=== PATIENT | female | born 1990 | race Caucasian/White ===

== ENCOUNTER → 2017-05-30 | Outpatient (REF) | payer OTHER ==
[2017-05-30 14:01] LABS: PLATELET COUNT, AUTOMATED 297 K/uL (150-450)
== END ==
LOC: ZZSENDIN 12:53
PROVIDERS: ATTEND Student in an Organized Health Care Education/Training Program
DX: Z36.89 Encounter for other specified antenatal screening (principal); Z3A.01 Less than 8 weeks gestation of pregnancy
CPT/HCPCS: 81001; 85025; 86592; 86762; 86850; 86900; 86901; 87088; 87340

== ENCOUNTER 2017-10-27 13:12 | Inpatient (IN) | payer BC ==
[~2017-10-27] VITALS: Ht 163.8 cm; Wt 109.3 kg
[2017-10-27] MEDS ORDERED: MAGNESIUM SUL* 4 GM/100 ML BAG 100 ML IVPB ONE (13:40)
[2017-10-27] MEDS ORDERED: METOCLOPRAMIDE 10 MG/2 ML SDV IVP PRN (13:40)
[2017-10-27] MEDS ORDERED: CALCIUM GLUC 10% 100 MG/ML VL IVP ONE (13:40)
[2017-10-27] MEDS: LR(*) 1000 ML BAG 1,000 ML IV SCH ×2 (13:40→23:40)
[2017-10-27] MEDS ORDERED: FAMOTIDINE(*) 20MG/50ML PREMIX 50 ML IVPB PRN (13:40)
[2017-10-27] MEDS ORDERED: OXYTOCIN 30 UNIT/D5LR 500 ML 500 ML IV PRN (13:40)
[2017-10-27] MEDS ORDERED: LIDOCAINE/SOD BICARB 8.4% SYR SC PRN (13:40)
[2017-10-27] MEDS ORDERED: LIDOCAINE 1% LOCAL 300 MG/30ML INJ PRN (13:40)
[2017-10-27 14:08] LABS: PLATELET COUNT, AUTOMATED 83 K/uL (150-450)
[2017-10-27] MEDS ORDERED: LABETALOL HCL 100 MG/20ML VIAL ONE ×2 (14:08→22:38)
[2017-10-27] MEDS: hydrALAZINE HCL 20 MG/ML VIAL IVP PRN ×2 (14:11→14:22)
[2017-10-27] MEDS: DLR(*) 1000 ML BAG 1,000 ML IV SCH ×2 (14:25→23:40)
[2017-10-27] MEDS: MAGNESIUM SULF 20 GM/500 ML IV 500 ML IV SCH (14:57)
[2017-10-27] MEDS: LABETALOL HCL 100 MG/20ML VIAL IVP PRN ×6 (15:00→22:26)
[2017-10-27 16:00] VITALS: BP 161/91; Ht 163.8 cm; Wt 109.3 kg
[2017-10-27] MEDS ORDERED: PREN-148 PO (16:07)
[2017-10-27] MEDS: MISOPROSTOL 25 MCG CAP PV SCH ×3 (16:09→21:00)
--- NOTE | 2017-10-27 16:11 | RADIOLOGY IMAGING REPORT ---
FACILITY: [facility] PATIENT NAME: Kassie Wood : 1990 MR: [id number] V: [id number] EXAM DATE: ORDERING PHYSICIAN: SEEMA BENJAMIN TECHNOLOGIST: Location: [facility] - [place] Patient: Kassie Wood : 1990 Visit/Account:[id number] Date of Sevice: 10/27/2017 EXAMINATION: Transabdominal OB Ultrasound HISTORY: demise. Gestational age: 29 weeks and 0 days based on an MAGNO of 01/12/2018. LMP(c): 04/07/2017. COMPARISON: None. FINDINGS: Intrauterine gestations: one presentation: Vertex heart rate: Absent cardiac activity Amniotic fluid index: 11.4 cm Largest amniotic fluid pocket 3.3 cm Placenta position: Posterior, without evidence of previa Uterus: gravid, otherwise normal Cervix: Poorly visualized on this transabdominal exam Gestational Parameters: BPD: 6.28 cm, 25 weeks 4 days HC: 23.17 cm, 25 weeks 2 days AC: 19.10 cm, 23 weeks 6 days FL: 4.86 cm, 26 weeks 3 days Average ultrasound age (AUA): 25 weeks 2 days Estimated weight (EFW): 756 grams +/- 110 grams EFW for LMP: 2nd percentile Anatomic Survey: A full anatomic survey was not performed. There is partial overlap of the skull bones compatible with a "[place] sign." Mild ascites with small pleural effusions. IMPRESSION: 1. demise. No cardiac activity is present. 2. Vertex position. 3. Posterior placenta without evidence of previa. 4. Estimated weight 756 grams, 2nd percentile for gestational age. 5. ANABELLE 11.4 cm. Findings were discussed with SEEMA BENJAMIN at 10/27/2017 4:07 PM. Report Dictated By: Alexandru Melendez MD at 10/27/2017 3:50 PM Report E-Signed By: Alexandru Melendez MD at 10/27/2017 4:07 PM [id number]
[2017-10-27] MEDS ORDERED: DEXAMETHASONE SOD 4 MG/ML VIAL IVP ONE (16:55)
[2017-10-27] MEDS: FLUSH 10 ML SYR IVP SCH (17:00)
[2017-10-27] MEDS ORDERED: hydrALAZINE HCL 20 MG/ML VIAL IVP PRN (17:55)
[2017-10-27] MEDS ORDERED: CALCIUM GLUC 10% 100 MG/ML VL IVP PRN (18:15)
--- NOTE | 2017-10-27 18:27 | History & Physical ---
History of Present Illness Age of Patient: 27 : 1 Para or TPAL: 0 EDC per LMP: Jan 12, 2018 Estimated Gestational Age: 29.0 Chief Complaint demise History of Present Illness Presented to clinic today with report of decreased movement since Friday. She was unsure if she felt anything on Friday. No heart tones heard on doppler and u/s confirmed IUFD with no heart motion detected. No obvious physical findings to explain the demise. However she was seen 10 days prior for her 28 week labs and had normal visit but platelets were found to be low in the 40s and rechecked in the 50s. With normal pressures and no symptoms of preeclampsia, a consult was put in for hematology which she has an appointment for this Friday. Her pressures today however were severely elevated ranging around 200/110. She continues to have no significant pre-eclampsia symptoms denying headache, visual changes or abdominal pains. She has been swollen in the lower extremities in recent months but no fascial swelling. She was seen in Urgent Care in [place] while on vacation recently for ear infection and was started on Amoxicillin. She now has a cough and is taking Robitussin and albuterol INH. Since here, labs also support diagnosis of severe preeclampsia with HELLP Syndrome. otherwise uncomplicated. Past Medical, Surgical, Family and Obstetric Histories reviewed. Please see ACOG chart. Med Rec Home Meds Reported Medications Vit W-Ca,Fe,FA(<1 mg) ( Formula) 1 Each Tablet, PO QDAY 10/27/17 Review of Systems Respiratory: Cough, No Shortness of Breath Gastrointestinal: No Nausea, No Vomiting, No Diarrhea Other as per HPI Exam General Exam General Apperance: Alert/Awake/No Acute Distress Neuro: No Gross deficits ENT: Other (congestion) Cardiovascular: Regular Rate and Rhythm Respiratory: No Respiratory Distress, Clear to Auscultation Abdomen: Soft, Non-Tender, Non-Distended, Gravid - Non-Tender, RUQ Non-Tender Musculoskeletal: No Weakness/Pain Extremities: No Cyanosis,Clubbing or Edema, Warm, Pulses, Reflexes (2+/4+), Clonus (none) Integumentary: Skin Intact without Lesions or Rash Psychological: Alert & Oriented X3, Appropriate Mood & Affect Cervical Dialation: 0 Cervical Effacement (%): 0 Presentation: Vertex (by u/s) Medical Decision Making Data Points Result Diagram: 10/27/17 1300 10/27/17 1300 Laboratory Tests 10/27/17 13:00 Laboratory - CBC/BMP Diagrams 10/27/17 13:00 Hematology Test 10/27/17 13:00 10/27/17 13:30 Red Blood Count 3.02 M/uL (4.17-5.56) Mean Corpuscular Volume 93.4 fL (80.0-96.0) Mean Corpuscular Hemoglobin 32.8 pg (26.0-33.0) Mean Corpuscular Hemoglobin Concent 35.1 g/dL (32.0-36.0) Red Cell Distribution Width 19.0 % (11.5-14.5) Mean Platelet Volume 8.6 fL (7.2-11.1) Neutrophils (%) (Auto) 74.1 % (39.4-72.5) Lymphocytes (%) (Auto) 19.5 % (17.6-49.6) Monocytes (%) (Auto) 5.2 % (4.1-12.4) Eosinophils (%) (Auto) 1.0 % (0.4-6.7) Basophils (%) (Auto) 0.2 % (0.3-1.4) Nucleated RBC Relative Count (auto) 0.2 /100WBC Neutrophils # (Auto) 8.9 K/uL (2.0-7.4) Lymphocytes # (Auto) 2.4 K/uL (1.3-3.6) Monocytes # (Auto) 0.6 K/uL (0.3-1.0) Eosinophils # (Auto) 0.1 K/uL (0.0-0.5) Basophils # (Auto) 0.0 K/uL (0.0-0.1) Nucleated RBC Absolute Count (auto) 0.03 K/uL Sodium Level 138 mmol/L (137-145) Potassium Level 3.6 mmol/L (3.5-5.0) Chloride Level 103 mmol/L (98-107) Carbon Dioxide Level 24 mmol/L (22-31) Blood Urea Nitrogen 8 mg/dl (7-18) Creatinine 0.60 mg/dl (0.52-1.04) Glomerular Filtration Rate Calc > 60.0 Random Glucose 82 mg/dl (75-110) Uric Acid 4.8 mg/dl (2.5-7.5) Calcium Level 8.5 mg/dl (8.4-10.2) Total Bilirubin 0.8 mg/dl (0.2-1.3) Aspartate Amino Transf (AST/SGOT) 90 U/L (0-35) Alanine Aminotransferase (ALT/SGPT) 151 U/L (0-56) Alkaline Phosphatase 199 U/L (0-126) Lactate Dehydrogenase 2418 U/L (0-590) Total Protein 6.8 g/dl (6.3-8.2) Albumin 3.5 g/dl (3.5-5.0) Urine Random Creatinine 53.6 mg/dl Urine Random Total Protein 359 mg/dl (<11) Chemistry Test 10/27/17 13:00 10/27/17 13:30 White Blood Count 12.1 k/uL (4.5-11.0) Red Blood Count 3.02 M/uL (4.17-5.56) Hemoglobin 9.9 g/dL (12.0-16.0) Hematocrit 28.2 % (34.0-47.0) Mean Corpuscular Volume 93.4 fL (80.0-96.0) Mean Corpuscular Hemoglobin 32.8 pg (26.0-33.0) Mean Corpuscular Hemoglobin Concent 35.1 g/dL (32.0-36.0) Red Cell Distribution Width 19.0 % (11.5-14.5) Platelet Count 83 K/uL (150-450) Mean Platelet Volume 8.6 fL (7.2-11.1) Neutrophils (%) (Auto) 74.1 % (39.4-72.5) Lymphocytes (%) (Auto) 19.5 % (17.6-49.6) Monocytes (%) (Auto) 5.2 % (4.1-12.4) Eosinophils (%) (Auto) 1.0 % (0.4-6.7) Basophils (%) (Auto) 0.2 % (0.3-1.4) Nucleated RBC Relative Count (auto) 0.2 /100WBC Neutrophils # (Auto) 8.9 K/uL (2.0-7.4) Lymphocytes # (Auto) 2.4 K/uL (1.3-3.6) Monocytes # (Auto) 0.6 K/uL (0.3-1.0) Eosinophils # (Auto) 0.1 K/uL (0.0-0.5) Basophils # (Auto) 0.0 K/uL (0.0-0.1) Nucleated RBC Absolute Count (auto) 0.03 K/uL Glomerular Filtration Rate Calc > 60.0 Uric Acid 4.8 mg/dl (2.5-7.5) Calcium Level 8.5 mg/dl (8.4-10.2) Total Bilirubin 0.8 mg/dl (0.2-1.3) Aspartate Amino Transf (AST/SGOT) 90 U/L (0-35) Alanine Aminotransferase (ALT/SGPT) 151 U/L (0-56) Alkaline Phosphatase 199 U/L (0-126) Lactate Dehydrogenase 2418 U/L (0-590) Total Protein 6.8 g/dl (6.3-8.2) Albumin 3.5 g/dl (3.5-5.0) Urine Random Creatinine 53.6 mg/dl Urine Random Total Protein 359 mg/dl (<11) Urinalysis Test 10/27/17 13:30 Urine Random Creatinine 53.6 mg/dl Urine Random Total Protein 359 mg/dl (<11) Imaging Ultrasound/Imaging FACILITY: [facility] PATIENT NAME: Kassie Wood : 1990 MR: [id number] V: [id number] EXAM DATE: ORDERING PHYSICIAN: SEEMA BENJAMIN TECHNOLOGIST: Location: [facility] - [place] Patient: Kassie Wood : 1990 Visit/Account:[id number] Date of Sevice: 10/27/2017 EXAMINATION: Transabdominal OB Ultrasound HISTORY: demise. Gestational age: 29 weeks and 0 days based on an MAGNO of 01/12/2018. LMP(c): 04/07/2017. COMPARISON: None. FINDINGS: Intrauterine gestations: one presentation: Vertex heart rate: Absent cardiac activity Amniotic fluid index: 11.4 cm Largest amniotic fluid pocket 3.3 cm Placenta position: Posterior, without evidence of previa Uterus: gravid, otherwise normal Cervix: Poorly visualized on this transabdominal exam Gestational Parameters: BPD: 6.28 cm, 25 weeks 4 days HC: 23.17 cm, 25 weeks 2 days AC: 19.10 cm, 23 weeks 6 days FL: 4.86 cm, 26 weeks 3 days Average ultrasound age (AUA): 25 weeks 2 days Estimated weight (EFW): 756 grams +/- 110 grams EFW for LMP: 2nd percentile Anatomic Survey: A full anatomic survey was not performed. There is partial overlap of the skull bones compatible with a "[place] sign." Mild ascites with small pleural effusions. IMPRESSION: 1. demise. No cardiac activity is present. 2. Vertex position. 3. Posterior placenta without evidence of previa. 4. Estimated weight 756 grams, 2nd percentile for gestational age. 5. ANABELLE 11.4 cm. Findings were discussed with SEEMA BENJAMIN at 10/27/2017 4:07 PM. Report Dictated By: Alexandru Melendez MD at 10/27/2017 3:50 PM Report E-Signed By: Alexandru Melendez MD at 10/27/2017 4:07 PM [id number] Assessment and Plan Problems: (1) demise, greater than 22 weeks, antepartum (2) Severe pre-eclampsia, third trimester Assessment & Plan: Aggressive use of anti-hypertensives for BP support until delivered. Avoid if possible due to demise. Aggressive induction techniques with Cytotec now, possible mechanical cervical dilation techniques later. Fluid restriction to avoid fluid overload. Follow labs every 6 hours for severity. Magnesium sulfate for seizure prophylaxis. Enrique catheter and monitor I&Os. Work up for APLS . (3) HELLP syndrome (HELLP), third trimester Assessment & Plan: Moving toward delivery and cure. Repeat labs every 6 hours. Dexamethasone for platelet and liver support. Confirmed with OBX, Dr. Valente. Problem Qualifiers (1) demise, greater than 22 weeks, antepartum: Fetus number: single or unspecified fetus Qualified Codes: O36.4XX0 - Maternal care for intrauterine , not applicable or unspecified SEEMA BENJAMIN MD Oct 27, 2017 18:27
[2017-10-27 19:38] LABS: PLATELET COUNT, AUTOMATED 82 K/uL (150-450)
[2017-10-27] MEDS ORDERED: ALBU8.5H IH (20:04)
[2017-10-27] MEDS: CHLORPH/HYDROCOD SUSP CR 5 ML PO PRN (20:08)
[2017-10-27 20:33] LABS: INR 0.96
[2017-10-27] MEDS ORDERED: MISOPROSTOL 200 MCG TAB ONE (20:41)
[2017-10-27] MEDS: DEXAMETHASONE SOD 4 MG/ML VIAL IVP SCH (21:33)
[2017-10-28] MEDS: MISOPROSTOL 100 MCG TAB PV SCH ×2 (01:00→05:00)
[2017-10-28] MEDS: FLUSH 10 ML SYR IVP SCH ×3 (01:00→17:00)
[2017-10-28] MEDS: DEXAMETHASONE SOD 4 MG/ML VIAL IVP SCH ×6 (01:01→21:20)
[2017-10-28] MEDS: MAGNESIUM SULF 20 GM/500 ML IV 500 ML IV SCH ×3 (01:16→19:40)
[2017-10-28] MEDS: LABETALOL HCL 100 MG/20ML VIAL IVP PRN ×2 (01:17→03:24)
[2017-10-28] MEDS ORDERED: MISOPROSTOL 200 MCG TAB ONE ×2 (01:19→05:18)
[2017-10-28 01:24] LABS: PLATELET COUNT, AUTOMATED 97 K/uL (150-450)
[2017-10-28] MEDS: DLR(*) 1000 ML BAG 1,000 ML IV SCH ×2 (03:13→13:23)
[2017-10-28 07:12] LABS: PLATELET COUNT, AUTOMATED 111 K/uL (150-450)
[2017-10-28] MEDS: CHLORPH/HYDROCOD SUSP CR 5 ML PO PRN ×2 (07:57→22:02)
--- NOTE | 2017-10-28 08:22 | Labor Progress Note ---
Labor Subjective Progress Notes Subjective Feeling improved this AM. Was able to rest through the night well. Cervix has changed from closed to 2 cm now/60% effaced. BP has improved in control with Labetolol boluses and hydralazine. Good UO over night as well. Labor Pain: Mild Labor Objective Vital Signs Vital Signs Date Time Temp Pulse Resp B/P (MAP) Pulse Ox O2 Delivery O2 Flow Rate FiO2 10/27/17 16:00 102 16 161/91 (114) Room Air Vaginal Discharge/Fluid?: Bloody Show Cervical Dialation: 2 Cervical Effacement (%): 60 Cervical Consistency: Moderate Cervical Position: Mid Station: -1 Other Result Diagram: 10/28/17 0705 10/28/17 0705 Lab Hematology Test 10/27/17 13:00 10/27/17 13:30 10/27/17 19:11 10/27/17 20:14 Uric Acid 4.8 mg/dl (2.5-7.5) Lactate Dehydrogenase 2418 U/L (0-590) Urine Random Creatinine 53.6 mg/dl Urine Random Total Protein 359 mg/dl (<11) Peripheral Blood Smear Yes Y/N Prothrombin Time 12.8 seconds (12.0-14.4) Prothromb Time International Ratio 0.96 Activated Partial Thromboplast Time 37 seconds (23-35) Fibrinogen 635 mg/dL (169-449) D-Dimer Quantitative (PE/DVT) 5.30 ug/ml (0-0.50) Test 10/28/17 07:05 Red Blood Count 2.93 M/uL (4.17-5.56) Mean Corpuscular Volume 95.0 fL (80.0-96.0) Mean Corpuscular Hemoglobin 32.9 pg (26.0-33.0) Mean Corpuscular Hemoglobin Concent 34.6 g/dL (32.0-36.0) Red Cell Distribution Width 19.6 % (11.5-14.5) Mean Platelet Volume 9.3 fL (7.2-11.1) Neutrophils (%) (Auto) 86.8 % (39.4-72.5) Lymphocytes (%) (Auto) 11.5 % (17.6-49.6) Monocytes (%) (Auto) 1.5 % (4.1-12.4) Eosinophils (%) (Auto) 0.0 % (0.4-6.7) Basophils (%) (Auto) 0.2 % (0.3-1.4) Nucleated RBC Relative Count (auto) 0.4 /100WBC Neutrophils # (Auto) 11.0 K/uL (2.0-7.4) Lymphocytes # (Auto) 1.5 K/uL (1.3-3.6) Monocytes # (Auto) 0.2 K/uL (0.3-1.0) Eosinophils # (Auto) 0.0 K/uL (0.0-0.5) Basophils # (Auto) 0.0 K/uL (0.0-0.1) Nucleated RBC Absolute Count (auto) 0.06 K/uL Sodium Level 137 mmol/L (137-145) Potassium Level 4.0 mmol/L (3.5-5.0) Chloride Level 103 mmol/L (98-107) Carbon Dioxide Level 23 mmol/L (22-31) Blood Urea Nitrogen 6 mg/dl (7-18) Creatinine 0.60 mg/dl (0.52-1.04) Glomerular Filtration Rate Calc > 60.0 Random Glucose 149 mg/dl (75-110) Calcium Level 7.1 mg/dl (8.4-10.2) Magnesium Level 5.9 mg/dl (1.7-2.2) Total Bilirubin 0.3 mg/dl (0.2-1.3) Aspartate Amino Transf (AST/SGOT) 43 U/L (0-35) Alanine Aminotransferase (ALT/SGPT) 109 U/L (0-56) Alkaline Phosphatase 174 U/L (0-126) Total Protein 5.8 g/dl (6.3-8.2) Albumin 3.0 g/dl (3.5-5.0) Chemistry Test 10/27/17 13:00 10/27/17 13:30 10/27/17 19:11 10/27/17 20:14 Uric Acid 4.8 mg/dl (2.5-7.5) Lactate Dehydrogenase 2418 U/L (0-590) Urine Random Creatinine 53.6 mg/dl Urine Random Total Protein 359 mg/dl (<11) Peripheral Blood Smear Yes Y/N Prothrombin Time 12.8 seconds (12.0-14.4) Prothromb Time International Ratio 0.96 Activated Partial Thromboplast Time 37 seconds (23-35) Fibrinogen 635 mg/dL (169-449) D-Dimer Quantitative (PE/DVT) 5.30 ug/ml (0-0.50) Test 10/28/17 07:05 White Blood Count 12.7 k/uL (4.5-11.0) Red Blood Count 2.93 M/uL (4.17-5.56) Hemoglobin 9.6 g/dL (12.0-16.0) Hematocrit 27.8 % (34.0-47.0) Mean Corpuscular Volume 95.0 fL (80.0-96.0) Mean Corpuscular Hemoglobin 32.9 pg (26.0-33.0) Mean Corpuscular Hemoglobin Concent 34.6 g/dL (32.0-36.0) Red Cell Distribution Width 19.6 % (11.5-14.5) Platelet Count 111 K/uL (150-450) Mean Platelet Volume 9.3 fL (7.2-11.1) Neutrophils (%) (Auto) 86.8 % (39.4-72.5) Lymphocytes (%) (Auto) 11.5 % (17.6-49.6) Monocytes (%) (Auto) 1.5 % (4.1-12.4) Eosinophils (%) (Auto) 0.0 % (0.4-6.7) Basophils (%) (Auto) 0.2 % (0.3-1.4) Nucleated RBC Relative Count (auto) 0.4 /100WBC Neutrophils # (Auto) 11.0 K/uL (2.0-7.4) Lymphocytes # (Auto) 1.5 K/uL (1.3-3.6) Monocytes # (Auto) 0.2 K/uL (0.3-1.0) Eosinophils # (Auto) 0.0 K/uL (0.0-0.5) Basophils # (Auto) 0.0 K/uL (0.0-0.1) Nucleated RBC Absolute Count (auto) 0.06 K/uL Glomerular Filtration Rate Calc > 60.0 Calcium Level 7.1 mg/dl (8.4-10.2) Magnesium Level 5.9 mg/dl (1.7-2.2) Total Bilirubin 0.3 mg/dl (0.2-1.3) Aspartate Amino Transf (AST/SGOT) 43 U/L (0-35) Alanine Aminotransferase (ALT/SGPT) 109 U/L (0-56) Alkaline Phosphatase 174 U/L (0-126) Total Protein 5.8 g/dl (6.3-8.2) Albumin 3.0 g/dl (3.5-5.0) Coagulation Test 10/27/17 20:14 Prothrombin Time 12.8 seconds Prothromb Time International Ratio 0.96 Activated Partial Thromboplast Time 37 seconds Fibrinogen 635 mg/dL D-Dimer Quantitative (PE/DVT) 5.30 ug/ml Urinalysis Test 10/27/17 13:30 Urine Random Creatinine 53.6 mg/dl Urine Random Total Protein 359 mg/dl (<11) Assessment and Plan Problems: (1) demise, greater than 22 weeks, antepartum Assessment & Plan: has received Cytotec overnight every 4 hours and increased dose to 200 mcg. Now effecting cervical change. Will transition to Pitocin now. AROM done with thick meconium stained fluid noted. (2) Severe pre-eclampsia, third trimester Assessment & Plan: continue to control BP with anti-hypertensives and monitor response. (3) HELLP syndrome (HELLP), third trimester Assessment & Plan: labs improved overnight. Continue dexamethasone for now. Problem Qualifiers (1) demise, greater than 22 weeks, antepartum: Fetus number: single or unspecified fetus Qualified Codes: O36.4XX0 - Maternal care for intrauterine , not applicable or unspecified SEEMA BENJAMIN MD Oct 28, 2017 08:22
[2017-10-28] MEDS ORDERED: OXYTOCIN 30 UNIT/D5LR 500 ML 500 ML IV PRN (09:38)
[2017-10-28] MEDS: fentaNYL CITR 100 MCG/2 ML AMP IVP PRN ×3 (11:25→16:13)
[2017-10-28 13:15] LABS: PLATELET COUNT, AUTOMATED 147 K/uL (150-450)
[2017-10-28] MEDS: LR(*) 1000 ML BAG 1,000 ML IV SCH ×2 (13:32→19:40)
[2017-10-28] MEDS ORDERED: HYDROmorphone PCA 6 MG/30 ML IV PRN (17:00)
[2017-10-28] MEDS ORDERED: LABETALOL HCL 100 MG/20ML VIAL IVP PRN (17:10)
[2017-10-28] MEDS ORDERED: BENZOCAINE 20% 60 ML BTL TP PRN (18:40)
[2017-10-28] MEDS ORDERED: LANOLIN OINT 7 GM TUBE TP PRN (18:40)
[2017-10-28] MEDS ORDERED: ACETAMINOPHEN 325 MG TAB PO PRN (18:40)
[2017-10-28] MEDS ORDERED: MAGNESIUM HYDROXIDE* 30ML UDCP PO PRN (18:40)
[2017-10-28] MEDS ORDERED: APAP/HYDROCODONE 325/5 TAB PO PRN (18:40)
[2017-10-28] MEDS ORDERED: DIPHTH/TETANUS/ACEL. PERTUSSIS IM ONE (18:40)
[2017-10-28] MEDS ORDERED: HYDROCORTISONE 2.5% CR 30GM TB PR PRN (18:40)
[2017-10-28] MEDS ORDERED: GLYCERIN/WITCH HAZEL LEAF 1 PK TOP PRN (18:40)
--- NOTE | 2017-10-28 18:53 | OB Delivery Note ---
Delivery Note Vaginal Delivery Type: Spont. Vaginal Delivery Delivery Date: Oct 28, 2017 Delivery Time: 18:14 Estimated Gestational Age(wks): 29 Delivery Anesthesia: IV Opiate Infant Sex: Female Repair Needed: Other (none) Estimated Blood Loss: 50 Delivery Complications: Other (25% placental abruption noted) Notes: Completely dilated at 1838 after Cytotec and Pitocin induction. Pt made ready in dorsal lithotomy position. Pushing with contraction effected delivery of fetus at 1814, intact. Placenta delivered spontaneously at 1820, intact and without complication. No lacerations or repairs needed. Bleeding minimal. Cytotec 800 mcg given PO x 1 and Pitocin infused rapidly IV. [employer] in Attendence: No Copies to: SEEMA BENJAMIN MD, TRAVIS MD Oct 28, 2017 18:53
[2017-10-28] MEDS ORDERED: LABETALOL HCL 100 MG TAB PO SCH (19:10)
[2017-10-28 19:13] LABS: PLATELET COUNT, AUTOMATED 169 K/uL (150-450)
[2017-10-28 20:10] VITALS: BP 143/70
[2017-10-28 21:00] VITALS: BP 133/66
[2017-10-28] MEDS: DOCUSATE CALCIUM 240 MG CAP PO SCH (21:20)
[2017-10-28 22:08] VITALS: BP 145/87
[2017-10-28 22:59] VITALS: BP 129/62
[2017-10-28 23:18] VITALS: BP 130/69
[2017-10-29] VITALS (18 sets, daily range): BP systolic 116–146; BP diastolic 62–91
[2017-10-29] MEDS: LR(*) 1000 ML BAG 1,000 ML IV SCH ×2 (00:11→09:11)
[2017-10-29] MEDS: FLUSH 10 ML SYR IVP SCH ×3 (00:50→12:33)
[2017-10-29] MEDS: DEXAMETHASONE SOD 4 MG/ML VIAL IVP SCH ×6 (00:50→20:19)
[2017-10-29] MEDS ORDERED: MISOPROSTOL 200 MCG TAB ONE (02:06)
[2017-10-29] MEDS: LABETALOL HCL 100 MG TAB PO SCH ×3 (03:34→21:33)
[2017-10-29] MEDS ORDERED: LABETALOL HCL 100 MG TAB PO SCH (04:00)
[2017-10-29] MEDS: DLR(*) 1000 ML BAG 1,000 ML IV SCH ×2 (05:40→15:40)
[2017-10-29] MEDS: MAGNESIUM SULF 20 GM/500 ML IV 500 ML IV SCH ×2 (06:09→16:00)
[2017-10-29 07:14] LABS: PLATELET COUNT, AUTOMATED 181 K/uL (150-450)
[2017-10-29] MEDS: DOCUSATE CALCIUM 240 MG CAP PO SCH ×2 (09:13→20:19)
[2017-10-29] MEDS: CHLORPH/HYDROCOD SUSP CR 5 ML PO PRN (10:23)
--- NOTE | 2017-10-29 10:45 | OB/GYN Progress Note ---
OB Subjective Progress Notes Subjective Doing much better now. Feeling more rested and labs improving. Urine output is good. : Voiding Well Pain: Mild OB Objective Physical Exam Vital Signs Date Time Temp Pulse Resp B/P (MAP) Pulse Ox O2 Delivery O2 Flow Rate FiO2 10/29/17 10:13 132/66 (88) 10/29/17 09:19 97.8 18 96 Nasal Cannula 2.0 10/29/17 06:05 68 Intake and Output 10/30/17 07:00 Intake Total 952 ml Output Total 1400 ml Balance -448 ml Intake Oral 50 ml IV Total 902 ml Output Urine Total 1400 ml General Appearance: Alert/Awake/No Acute Distress Neurological: No Gross deficits Cardiovascular: Normal Rhythm & Peripheral Pulses Respiratory: No Respiratory Distress Abdomen: Soft, Non-Tender, Non-Distended Extremities: No Cyanosis,Clubbing or Edema (improved), Warm, Pulses Integumentary: Skin Intact without Lesions or Rash Psychological: Alert & Oriented X3, Appropriate Mood & Affect Result Diagram: 10/29/17 0705 10/29/17 0705 Assessment and Plan Problems: (1) demise, greater than 22 weeks, antepartum Assessment & Plan: resolved with delivery (2) Severe pre-eclampsia, third trimester Assessment & Plan: Still on magnesium. Will continue till this evening and then come off. Will test ambulation tonight and tomorrow. May be able to go home tomorrow. BP improved on PO. (3) HELLP syndrome (HELLP), third trimester Problem Qualifiers (1) demise, greater than 22 weeks, antepartum: Fetus number: single or unspecified fetus Qualified Codes: O36.4XX0 - Maternal care for intrauterine , not applicable or unspecified SEEMA BENJAMIN MD Oct 29, 2017 10:45
[2017-10-29 19:10] LABS: PLATELET COUNT, AUTOMATED 221 K/uL (150-450)
[2017-10-30] VITALS (14 sets, daily range): BP systolic 119–157; BP diastolic 68–97
[2017-10-30] MEDS: CHLORPH/HYDROCOD SUSP CR 5 ML PO PRN (00:01)
[2017-10-30] MEDS: FLUSH 10 ML SYR IVP SCH ×3 (01:00→17:48)
[2017-10-30] MEDS: DEXAMETHASONE SOD 4 MG/ML VIAL IVP SCH ×6 (01:10→21:31)
[2017-10-30] MEDS: DLR(*) 1000 ML BAG 1,000 ML IV SCH ×2 (01:40→11:40)
[2017-10-30] MEDS: MAGNESIUM SULF 20 GM/500 ML IV 500 ML IV SCH ×2 (01:40→11:40)
[2017-10-30] MEDS: LR(*) 1000 ML BAG 1,000 ML IV SCH ×2 (01:40→11:40)
[2017-10-30] MEDS: LABETALOL HCL 100 MG TAB PO SCH ×3 (04:29→20:20)
[2017-10-30 07:37] LABS: PLATELET COUNT, AUTOMATED 231 K/uL (150-450)
--- NOTE | 2017-10-30 08:46 | OB/GYN Progress Note ---
OB Subjective Progress Notes Subjective Much improved. Feeling more energy off magnesium. Has not ambulated much yet. Bleeding lochia normal. Little pain. GI: NEG Nausea : Voiding Well Pain: Mild OB Objective Physical Exam Vital Signs Date Time Temp Pulse Resp B/P (MAP) Pulse Ox O2 Delivery O2 Flow Rate FiO2 10/30/17 07:50 94 10/30/17 07:50 98.1 77 20 157/97 (117) Room Air 10/29/17 14:29 2.0 General Appearance: Alert/Awake/No Acute Distress Neurological: No Gross deficits Cardiovascular: Normal Rhythm & Peripheral Pulses, Regular Rate and Rhythm Respiratory: No Respiratory Distress, Clear to Auscultation Abdomen: Soft, Non-Tender, Non-Distended, Fundus Firm, Non-Tender Extremities: No Cyanosis,Clubbing or Edema (improved), Warm, Pulses Integumentary: Skin Intact without Lesions or Rash Psychological: Alert & Oriented X3, Appropriate Mood & Affect Result Diagram: 10/30/1772210/30/17722 Assessment and Plan Problems: (1) demise, greater than 22 weeks, antepartum (2) Severe pre-eclampsia, third trimester Assessment & Plan: BP eren on meds. Will see how ambulation and increase in activity go today. May be ready for discharge this evening. (3) HELLP syndrome (HELLP), third trimester Problem Qualifiers (1) demise, greater than 22 weeks, antepartum: Fetus number: single or unspecified fetus Qualified Codes: O36.4XX0 - Maternal care for intrauterine , not applicable or unspecified SEEMA BENJAMIN MD Oct 30, 2017 08:46
[2017-10-30] MEDS: DOCUSATE CALCIUM 240 MG CAP PO SCH ×2 (09:21→21:27)
[2017-10-30 19:18] LABS: PLATELET COUNT, AUTOMATED 272 K/uL (150-450)
[2017-10-30] MEDS ORDERED: ZOLP-1 PO (20:04)
--- NOTE | 2017-10-30 20:06 | OB/GYN Progress Note ---
OB Subjective Progress Notes Subjective Doing and feeling well. No pain and has been ambulating. BP has been stable but a little higher with activity. She reports she has been more emotional today also. GI: NEG Nausea : Voiding Well Pain: Mild OB Objective Physical Exam Vital Signs Date Time Temp Pulse Resp B/P (MAP) Pulse Ox O2 Delivery O2 Flow Rate FiO2 10/30/17 17:55 98.8 86 18 130/73 (92) Room Air 10/30/17 07:50 94 10/29/17 14:29 2.0 Intake and Output 10/31/17 06:59 Intake Total 120 ml Output Total 900 ml Balance -780 ml Intake Oral 120 ml Output Urine Total 900 ml # Voids 2 # Bowel Movements 1 General Appearance: Alert/Awake/No Acute Distress Neurological: No Gross deficits Cardiovascular: Normal Rhythm & Peripheral Pulses Respiratory: No Respiratory Distress Extremities: No Cyanosis,Clubbing or Edema (improved but still edema), Warm, Pulses Integumentary: Skin Intact without Lesions or Rash Psychological: Alert & Oriented X3, Appropriate Mood & Affect Result Diagram: 10/30/17185510/30/171855 Assessment and Plan Problems: (1) demise, greater than 22 weeks, antepartum (2) Severe pre-eclampsia, third trimester Assessment & Plan: Stable on PO meds. May go home tonight depending on comfort level. They are still a little nervous. Labs all look to be improving consistently. Would have her return to office next week for BP check and they will monitor from home as well. Precautions and activity instructions reviewed. (3) HELLP syndrome (HELLP), third trimester Problem Qualifiers (1) demise, greater than 22 weeks, antepartum: Fetus number: single or unspecified fetus Qualified Codes: O36.4XX0 - Maternal care for intrauterine , not applicable or unspecified SEEMA BENJAMIN MD Oct 30, 2017 20:05
--- NOTE | 2017-10-30 20:09 | OB/GYN Discharge Summary ---
Discharge Summary Reason for Hosp/Final Diag: (1) demise, greater than 22 weeks, antepartum Hospital Course & Plan: Successful induction of demise with Cytotec and Pitocin. No complications (2) Severe pre-eclampsia, third trimester Hospital Course & Plan: Stable on PO meds, Labetalol 200mg TID. May go home tonight depending on comfort level. They are still a little nervous. Labs all look to be improving consistently. Would have her return to office next week for BP check and they will monitor from home as well. Precautions and activity instructions reviewed. (3) HELLP syndrome (HELLP), third trimester Hospital Course & Plan: Resolving HELLP syndrome with labs normalizing. Lates Vital Signs Vital Signs Date Time Temp Pulse Resp B/P (MAP) Pulse Ox O2 Delivery O2 Flow Rate FiO2 10/30/17 17:55 98.8 86 18 130/73 (92) Room Air 10/30/17 07:50 94 10/29/17 14:29 2.0 Weight (Pounds): 241 Result Diagram: 10/30/17 1856 10/30/17 1856 Hematology Test 10/27/17 13:00 10/27/17 13:30 10/27/17 20:14 10/29/17 07:05 Uric Acid 4.8 mg/dl (2.5-7.5) Lactate Dehydrogenase 2418 U/L (0-590) Urine Random Creatinine 53.6 mg/dl Urine Random Total Protein 359 mg/dl (<11) Prothrombin Time 12.8 seconds (12.0-14.4) Prothromb Time International Ratio 0.96 Activated Partial Thromboplast Time 37 seconds (23-35) Fibrinogen 635 mg/dL (169-449) D-Dimer Quantitative (PE/DVT) 5.30 ug/ml (0-0.50) Magnesium Level 6.5 mg/dl (1.7-2.2) Test 10/30/17 18:56 Red Blood Count 2.72 M/uL (4.17-5.56) Mean Corpuscular Volume 98.6 fL (80.0-96.0) Mean Corpuscular Hemoglobin 32.9 pg (26.0-33.0) Mean Corpuscular Hemoglobin Concent 33.4 g/dL (32.0-36.0) Red Cell Distribution Width 21.3 % (11.5-14.5) Mean Platelet Volume 8.6 fL (7.2-11.1) Neutrophils (%) (Auto) 84.0 % (39.4-72.5) Lymphocytes (%) (Auto) 11.5 % (17.6-49.6) Monocytes (%) (Auto) 4.2 % (4.1-12.4) Eosinophils (%) (Auto) 0.0 % (0.4-6.7) Basophils (%) (Auto) 0.3 % (0.3-1.4) Nucleated RBC Relative Count (auto) 0.4 /100WBC Neutrophils # (Auto) 14.7 K/uL (2.0-7.4) Lymphocytes # (Auto) 2.0 K/uL (1.3-3.6) Monocytes # (Auto) 0.7 K/uL (0.3-1.0) Eosinophils # (Auto) 0.0 K/uL (0.0-0.5) Basophils # (Auto) 0.1 K/uL (0.0-0.1) Nucleated RBC Absolute Count (auto) 0.07 K/uL Peripheral Blood Smear No Y/N Sodium Level 138 mmol/L (137-145) Potassium Level 4.3 mmol/L (3.5-5.0) Chloride Level 107 mmol/L (98-107) Carbon Dioxide Level 24 mmol/L (22-31) Blood Urea Nitrogen 16 mg/dl (7-18) Creatinine 0.70 mg/dl (0.52-1.04) Glomerular Filtration Rate Calc > 60.0 Random Glucose 111 mg/dl (75-110) Calcium Level 7.3 mg/dl (8.4-10.2) Total Bilirubin 0.1 mg/dl (0.2-1.3) Aspartate Amino Transf (AST/SGOT) 46 U/L (0-35) Alanine Aminotransferase (ALT/SGPT) 88 U/L (0-56) Alkaline Phosphatase 141 U/L (0-126) Total Protein 5.7 g/dl (6.3-8.2) Albumin 3.0 g/dl (3.5-5.0) Chemistry Test 10/27/17 13:00 10/27/17 13:30 10/27/17 20:14 10/29/17 07:05 Uric Acid 4.8 mg/dl (2.5-7.5) Lactate Dehydrogenase 2418 U/L (0-590) Urine Random Creatinine 53.6 mg/dl Urine Random Total Protein 359 mg/dl (<11) Prothrombin Time 12.8 seconds (12.0-14.4) Prothromb Time International Ratio 0.96 Activated Partial Thromboplast Time 37 seconds (23-35) Fibrinogen 635 mg/dL (169-449) D-Dimer Quantitative (PE/DVT) 5.30 ug/ml (0-0.50) Magnesium Level 6.5 mg/dl (1.7-2.2) Test 10/30/17 18:56 White Blood Count 17.5 k/uL (4.5-11.0) Red Blood Count 2.72 M/uL (4.17-5.56) Hemoglobin 9.0 g/dL (12.0-16.0) Hematocrit 26.8 % (34.0-47.0) Mean Corpuscular Volume 98.6 fL (80.0-96.0) Mean Corpuscular Hemoglobin 32.9 pg (26.0-33.0) Mean Corpuscular Hemoglobin Concent 33.4 g/dL (32.0-36.0) Red Cell Distribution Width 21.3 % (11.5-14.5) Platelet Count 272 K/uL (150-450) Mean Platelet Volume 8.6 fL (7.2-11.1) Neutrophils (%) (Auto) 84.0 % (39.4-72.5) Lymphocytes (%) (Auto) 11.5 % (17.6-49.6) Monocytes (%) (Auto) 4.2 % (4.1-12.4) Eosinophils (%) (Auto) 0.0 % (0.4-6.7) Basophils (%) (Auto) 0.3 % (0.3-1.4) Nucleated RBC Relative Count (auto) 0.4 /100WBC Neutrophils # (Auto) 14.7 K/uL (2.0-7.4) Lymphocytes # (Auto) 2.0 K/uL (1.3-3.6) Monocytes # (Auto) 0.7 K/uL (0.3-1.0) Eosinophils # (Auto) 0.0 K/uL (0.0-0.5) Basophils # (Auto) 0.1 K/uL (0.0-0.1) Nucleated RBC Absolute Count (auto) 0.07 K/uL Peripheral Blood Smear No Y/N Glomerular Filtration Rate Calc > 60.0 Calcium Level 7.3 mg/dl (8.4-10.2) Total Bilirubin 0.1 mg/dl (0.2-1.3) Aspartate Amino Transf (AST/SGOT) 46 U/L (0-35) Alanine Aminotransferase (ALT/SGPT) 88 U/L (0-56) Alkaline Phosphatase 141 U/L (0-126) Total Protein 5.7 g/dl (6.3-8.2) Albumin 3.0 g/dl (3.5-5.0) Coagulation Test 10/27/17 20:14 Prothrombin Time 12.8 seconds Prothromb Time International Ratio 0.96 Activated Partial Thromboplast Time 37 seconds Fibrinogen 635 mg/dL D-Dimer Quantitative (PE/DVT) 5.30 ug/ml Urinalysis Test 10/27/17 13:30 Urine Random Creatinine 53.6 mg/dl Urine Random Total Protein 359 mg/dl (<11) Condition: Improved Discharge: Home, Self Mcc Meds Active Scripts Zolpidem Tartrate (AMBIEN) 5 Mg Tablet, 1 TAB PO QHS Y for SLEEP, #30 TAB 0 Refills Prov:ORESTES BURTON MD 10/30/17 Reported Medications Albuterol Sulfate 90 Mcg/Act (PROAIR HFA 90 MCG/ACT) 8.5 Gm Hfa.aer.ad, 1-2 PUFF IH 3-4XD, INHALER 10/27/17 Vit W-Ca,Fe,FA(<1 mg) ( Formula) 1 Each Tablet, PO QDAY 10/27/17 Follow up Referrals: DIRECTOR SALES TRAINING - 11/04/17 @ [facility] with Orestes Burton Md Follow up with: Dr. Burton [phone] Follow up in: 3-4 days Discharge Diet: As Tolerates Discharge Activity: As Tolerates (with intermittent rest and activity) Copies to: ORESTES BURTON MD Problem Qualifiers (1) demise, greater than 22 weeks, antepartum: Fetus number: single or unspecified fetus Qualified Codes: O36.4XX0 - Maternal care for intrauterine , not applicable or unspecified ORESTES BURTON MD Oct 30, 2017 20:09
[2017-10-31] MEDS: DEXAMETHASONE SOD 4 MG/ML VIAL IVP SCH ×2 (01:22→05:10)
[2017-10-31] MEDS: FLUSH 10 ML SYR IVP SCH (01:23)
[2017-10-31] MEDS: LABETALOL HCL 100 MG TAB PO SCH (04:04)
[2017-10-31 04:06] VITALS: BP 134/75
[2017-10-31 05:10] VITALS: BP 131/74
[2017-10-31] MEDS: MAGNESIUM SULF 20 GM/500 ML IV 500 ML IV SCH (08:02)
[2017-10-31 08:12] VITALS: BP 162/91
[2017-10-31 08:24] VITALS: BP 156/87
--- NOTE | 2017-10-31 08:32 | OB/GYN Progress Note ---
OB Subjective Progress Notes Subjective Doing well. No problems. Ready to go home. GI: NEG Nausea : Voiding Well Pain: Mild OB Objective Physical Exam Vital Signs Date Time Temp Pulse Resp B/P (MAP) Pulse Ox O2 Delivery O2 Flow Rate FiO2 10/31/17 08:24 156/87 (110) 10/31/17 08:12 98.0 95 Room Air 10/31/17 05:10 66 20 10/29/17 14:29 2.0 General Appearance: Alert/Awake/No Acute Distress Neurological: No Gross deficits Cardiovascular: Normal Rhythm & Peripheral Pulses Respiratory: No Respiratory Distress Extremities: No Cyanosis,Clubbing or Edema (improved but still edema), Warm, Pulses Integumentary: Skin Intact without Lesions or Rash Psychological: Alert & Oriented X3, Appropriate Mood & Affect Result Diagram: 10/30/17185510/30/171855 Assessment and Plan SANDER HAND Plan: Discharge Home Today Problems: (1) demise, greater than 22 weeks, antepartum (2) Severe pre-eclampsia, third trimester (3) HELLP syndrome (HELLP), third trimester Problem Qualifiers (1) demise, greater than 22 weeks, antepartum: Fetus number: single or unspecified fetus Qualified Codes: O36.4XX0 - Maternal care for intrauterine , not applicable or unspecified SEEMA BENJAMIN MD Oct 31, 2017 08:31
[2017-10-31] MEDS ORDERED: LABE200T35 PO (09:36)
[2017-10-31] MEDS ORDERED: LABE100T2 PO (10:00)
== END 2017-10-31 10:30 | disposition home or self-care (01) | DRG 774 ==
LOC: OB 13:12
PROVIDERS: ADMIT Obstetrics & Gynecology; ATTEND Obstetrics & Gynecology
PROC: 3E0P7VZ Introduction of Hormone into Female Reproductive, Via Natural or Artificial Opening (ICD-10-PCS; 2017-10-27)
PROC: 3E033VJ Introduction of Other Hormone into Peripheral Vein, Percutaneous Approach (ICD-10-PCS; 2017-10-27)
PROC: 10E0XZZ Delivery of Products of Conception, External Approach (ICD-10-PCS; principal; 2017-10-28)
DX: O14.23 HELLP syndrome (HELLP), third trimester (principal); O45.93 Premature separation of placenta, unspecified, third trimester; O36.4XX0 Maternal care for intrauterine death, not applicable or unspecified; Z3A.29 29 weeks gestation of pregnancy; Z37.1 Single stillbirth
CPT/HCPCS: 36415; 76815; 82040; 82247; 82310; 82374; 82435; 82565; 82570; 82947; 83615; 83735; 84075; 84132; 84155; 84156; 84295; 84450; 84460; 84520; 84550; 85025; 85049; 85379; 85384; 85610; 85730; 86850; 86900; 86901; 88307; J0360; J1100; J1170; J2590; J3010; J3475; J3490; J7120

== ENCOUNTER → 2018-03-05 | Outpatient (REF) | payer BC ==
[2017-10-27 16:00] VITALS: BMI 40.7
[~2018-03-05] MED LIST: ALBU8.5H IH; LABE100T2 PO; LABE200T35 PO; PREN-148 PO; ZOLP-1 PO
== END ==
LOC: ZZSENDIN 16:27
PROVIDERS: ATTEND Obstetrics & Gynecology
DX: O20.0 Threatened abortion (principal)
CPT/HCPCS: 84702

== ENCOUNTER → 2018-03-07 | Outpatient (CLI) | payer BC ==
[2017-10-27 16:00] VITALS: BMI 40.7
== END ==
LOC: LAB 14:53
PROVIDERS: ATTEND Obstetrics & Gynecology
DX: O20.0 Threatened abortion (principal)
CPT/HCPCS: 36415; 84702

== ENCOUNTER 2018-03-22 11:34 | Emergency (ER) | payer BC ==
[2017-10-27 16:00] VITALS: BMI 40.7
[2018-03-22] MEDS ORDERED: NS(*) 0.9% 1000 ML BAG 1,000 ML IV ONE (11:45)
--- NOTE | 2018-03-22 11:46 | ER Report ---
History and Physical Time Seen By MD: 11:25 HPI/ROS CHIEF COMPLAINT: vaginal bleeding, miscarriage HISTORY OF PRESENT ILLNESS: 27 f ; hx HELLP, IUFD > 22 wks, at approx 8 wks and dx'd with IUFD, tx'd 1 wk ago with misoprostil; began bleeding friday, heavier yesterday, continued this am and had synocpe x 2; ems called; hypotensive tachycardia, en route, NS bolus initiated; pt continues to feel lightheaded, but feels like vaginal bleeding has somewhat slowed. REVIEW OF SYSTEMS: Constitutional: chills Eyes: No discharge. ENT: No sore throat. Cardiovascular: No chest pain, no palpitations. Respiratory: No cough, no shortness of breath. Gastrointestinal: lower abdominal cramping Genitourinary: vaginal bleeding Musculoskeletal: No back pain. Skin: No rashes. Neurological: syncope x 2 at home Remainder of the 14 system rev: Yes Allergies: Coded Allergies: No Known Drug Allergies (Unverified , 10/27/17) Home Meds Active Scripts Zolpidem Tartrate (AMBIEN) 5 Mg Tablet, 1 TAB PO QHS PRN for SLEEP, #30 TAB 0 Refills Prov:SEEMA BENJAMIN MD 10/30/17 Reported Medications Vit W-Ca,Fe,FA(<1 mg) ( Formula) 1 Each Tablet, PO QDAY 10/27/17 Discontinued Reported Medications Labetalol Hcl (LABETALOL HCL) 200 Mg Tablet, 200 MG PO Q8H, #60 10/31/17 Discontinued Scripts Labetalol Hcl (LABETALOL HCL) 100 Mg Tablet, 200 MG PO Q8H, #60 TAB 1 Refill Prov:SEEMA BENJAMIN MD 10/31/17 Reviewed Nurses Notes: Yes Old Medical Records Reviewed: Yes Hx Smoking: No Smoking Status: Never Smoker Constitutional Vital Sign - Last 24 Hours 03/22/18 03/22/18 03/22/18 03/22/18 11:34 11:34 11:38 11:44 Temp 97.6 97.6 Pulse 110 102 Resp 20 22 B/P (MAP) 110/83 110/83 (92) Pulse Ox 95 96 O2 Delivery Room Air 03/22/18 03/22/18 03/22/18 03/22/18 11:50 11:51 11:53 11:54 Pulse 114 Resp 13 B/P (MAP) 63/45 (51) 115/88 (97) 126/90 (102) Pulse Ox 98 03/22/18 03/22/18 03/22/18 03/22/18 12:00 12:04 12:06 12:10 Pulse 146 Resp 15 B/P (MAP) 115/87 (96) 112/75 (87) 127/91 (103) Pulse Ox 96 03/22/18 03/22/18 03/22/18 03/22/18 12:20 12:24 12:34 12:35 Pulse 98 103 Resp 11 11 B/P (MAP) 128/79 (95) 131/71 (91) Pulse Ox 99 98 03/22/18 03/22/18 03/22/18 03/22/18 12:40 12:45 12:50 12:55 Pulse 104 108 102 102 Resp 15 18 9 8 B/P (MAP) 125/78 (94) 107/64 (78) Pulse Ox 98 100 96 97 03/22/18 03/22/18 03/22/18 03/22/18 13:00 13:05 13:10 13:15 Pulse 103 101 98 103 Resp 20 6 7 10 B/P (MAP) 130/83 (99) 130/84 (99) 118/86 (97) 134/79 (97) Pulse Ox 97 97 95 95 03/22/18 03/22/18 03/22/18 03/22/18 13:20 13:25 13:30 13:31 Pulse 94 116 ??? Resp 13 9 B/P (MAP) 126/71 (89) 127/77 (94) 126/54 (78) Pulse Ox 79 86 03/22/18 03/22/18 03/22/18 03/22/18 13:35 13:40 13:45 13:50 Pulse 92 99 ??? 103 Resp 10 11 11 B/P (MAP) 119/72 (88) 124/79 (94) 126/62 (83) 138/77 (97) Pulse Ox 82 95 96 Physical Exam General Appearance: The patient is alert, has no immediate need for airway protection. However, she has pallor throughout Eyes: Pupils equal and round no injection. ENT, Mouth: mucous membranes dry Respiratory: There are no retractions, lungs are clear to auscultation. Cardiovascular: tachycardia, weak pulses Gastrointestinal: Abdomen is soft and non tender, no masses, bowel sounds normal. - moderate blod in vault. Clotted tissue extruding from open os x 2 cm Neurological: pt awake, lightheaded Skin: pale, cool Musculoskeletal: Extremities are nontender, nonswollen and have full range of motion. DIFFERENTIAL DIAGNOSIS: After history and physical exam differential diagnosis was considered for severe hemorrhage, infection, or other emergent etiology for symptoms. Medical Decision Making Data Points Result Diagram: 03/22/18 1156 03/22/18 1233 Laboratory Hematology Test 03/22/18 00:00 03/22/18 11:56 03/22/18 12:33 Human Chorionic Gonadotropin, Quant 4817 mIU/ml Red Blood Count 3.75 M/uL (4.17-5.56) Mean Corpuscular Volume 87.0 fL (80.0-96.0) Mean Corpuscular Hemoglobin 28.8 pg (26.0-33.0) Mean Corpuscular Hemoglobin Concent 33.1 g/dL (32.0-36.0) Red Cell Distribution Width 15.5 % (11.5-14.5) Mean Platelet Volume 7.8 fL (7.2-11.1) Neutrophils (%) (Auto) 73.3 % (39.4-72.5) Lymphocytes (%) (Auto) 22.5 % (17.6-49.6) Monocytes (%) (Auto) 3.3 % (4.1-12.4) Eosinophils (%) (Auto) 0.3 % (0.4-6.7) Basophils (%) (Auto) 0.6 % (0.3-1.4) Nucleated RBC Relative Count (auto) 0.0 /100WBC Neutrophils # (Auto) 10.5 K/uL (2.0-7.4) Lymphocytes # (Auto) 3.2 K/uL (1.3-3.6) Monocytes # (Auto) 0.5 K/uL (0.3-1.0) Eosinophils # (Auto) 0.0 K/uL (0.0-0.5) Basophils # (Auto) 0.1 K/uL (0.0-0.1) Nucleated RBC Absolute Count (auto) 0.01 K/uL Prothrombin Time 14.6 seconds (12.0-14.4) Prothromb Time International Ratio 1.14 Activated Partial Thromboplast Time 31 seconds (23-35) Sodium Level 135 mmol/L (137-145) Potassium Level 5.2 mmol/L (3.5-5.0) Chloride Level 111 mmol/L (98-107) Carbon Dioxide Level 15 mmol/L (22-31) Blood Urea Nitrogen 16 mg/dl (7-18) Creatinine 0.70 mg/dl (0.52-1.04) Glomerular Filtration Rate Calc > 60.0 Random Glucose 106 mg/dl (75-110) Calcium Level 7.5 mg/dl (8.4-10.2) Total Bilirubin 0.1 mg/dl (0.2-1.3) Aspartate Amino Transf (AST/SGOT) 12 U/L (0-35) Alanine Aminotransferase (ALT/SGPT) 23 U/L (0-56) Alkaline Phosphatase 40 U/L (0-126) Total Protein 5.0 g/dl (6.3-8.2) Albumin 2.8 g/dl (3.5-5.0) Chemistry Test 03/22/18 00:00 03/22/18 11:56 03/22/18 12:33 Human Chorionic Gonadotropin, Quant 4817 mIU/ml White Blood Count 14.3 k/uL (4.5-11.0) Red Blood Count 3.75 M/uL (4.17-5.56) Hemoglobin 10.8 g/dL (12.0-16.0) Hematocrit 32.6 % (34.0-47.0) Mean Corpuscular Volume 87.0 fL (80.0-96.0) Mean Corpuscular Hemoglobin 28.8 pg (26.0-33.0) Mean Corpuscular Hemoglobin Concent 33.1 g/dL (32.0-36.0) Red Cell Distribution Width 15.5 % (11.5-14.5) Platelet Count 300 K/uL (150-450) Mean Platelet Volume 7.8 fL (7.2-11.1) Neutrophils (%) (Auto) 73.3 % (39.4-72.5) Lymphocytes (%) (Auto) 22.5 % (17.6-49.6) Monocytes (%) (Auto) 3.3 % (4.1-12.4) Eosinophils (%) (Auto) 0.3 % (0.4-6.7) Basophils (%) (Auto) 0.6 % (0.3-1.4) Nucleated RBC Relative Count (auto) 0.0 /100WBC Neutrophils # (Auto) 10.5 K/uL (2.0-7.4) Lymphocytes # (Auto) 3.2 K/uL (1.3-3.6) Monocytes # (Auto) 0.5 K/uL (0.3-1.0) Eosinophils # (Auto) 0.0 K/uL (0.0-0.5) Basophils # (Auto) 0.1 K/uL (0.0-0.1) Nucleated RBC Absolute Count (auto) 0.01 K/uL Prothrombin Time 14.6 seconds (12.0-14.4) Prothromb Time International Ratio 1.14 Activated Partial Thromboplast Time 31 seconds (23-35) Glomerular Filtration Rate Calc > 60.0 Calcium Level 7.5 mg/dl (8.4-10.2) Total Bilirubin 0.1 mg/dl (0.2-1.3) Aspartate Amino Transf (AST/SGOT) 12 U/L (0-35) Alanine Aminotransferase (ALT/SGPT) 23 U/L (0-56) Alkaline Phosphatase 40 U/L (0-126) Total Protein 5.0 g/dl (6.3-8.2) Albumin 2.8 g/dl (3.5-5.0) Coagulation Test 03/22/18 12:33 Prothrombin Time 14.6 seconds Prothromb Time International Ratio 1.14 Activated Partial Thromboplast Time 31 seconds ED Course/Re-evaluation ED Course Patient presents hypotensive, tachycardic with ongoing miscarriage. 2 large-bore IVs initiated. 2 L IV fluids hung. I performed a pelvic exam and noted products of conception and clot extruding from open os. Initiated elfego, consulted OB to evaluate, and obtained a transvaginal ultrasound. However, the bulk of the bleeding occurred prior to arrival, as patient becomes more and more hemodynamically stable during ED evaluation. Ultimately, ultrasound does not show retained products of conception os. Repeat pelvic exam performed by Dr. Coates, shows closed os after remainder of clot is pulled from os. Patient continues to improve and is hemolytically stable after further evaluation. At this point patient is comfortable to leave. She will return for any worsening symptoms. Decision to Disposition Date: Mar 22, 2018 Decision to Disposition Time: 15:05 Critical Care Time I spent a total of 75 minutes of critical care time in obtaining history, performing a physical exam, bedside monitoring of interventions, collecting and interpreting tests and discussion with consultants but not including time spent performing procedures. Depart Departure Latest Vital Signs Vital Signs Date Time Temp Pulse Resp B/P (MAP) Pulse Ox O2 Delivery O2 Flow Rate FiO2 03/22/18 13:50 103 11 138/77 (97) 96 03/22/18 11:34 97.6 Room Air Impression: Primary Impression: Miscarriage Additional Impression: Uterine hemorrhage Condition: Improved Disposition: HOME OR SELF-CARE Referrals: SEEMA BENJAMIN MD 2 Days Additional Instructions: As we discussed, return immediately for worsening symptoms or any concerns. Follow up with your OB for further evaluation within then next 2-3 days. Problem Qualifiers CAROLANN CABRERA MD Mar 22, 2018 11:46
[2018-03-22 12:10] LABS: PLATELET COUNT, AUTOMATED 300 K/uL (150-450)
[2018-03-22] MEDS ORDERED: MISOPROSTOL 100 MCG TAB PO ONE (12:20)
[2018-03-22] MEDS ORDERED: MISOPROSTOL 200 MCG TAB PO ONE (12:40)
[2018-03-22 12:59] LABS: INR 1.14
--- NOTE | 2018-03-22 13:34 | RADIOLOGY IMAGING REPORT ---
FACILITY: [facility] PATIENT NAME: Kassie Wood : 1990 MR: [id number] V: [id number] EXAM DATE: ORDERING PHYSICIAN: CAROLANN CABRERA TECHNOLOGIST: [facility] Patient: Kassie Wood : 1990 Visit/Account:[id number] Date of Sevice: 03/22/2018 EXAMINATION: Transvaginal OB Ultrasound < 14 weeks 03/22/2018 11:42 AM HISTORY: ongoing miscarriage, heavy vaginal bleeding. LMP 01/01/2018: EGA 11 weeks 3 days (These are based on given MAGNO 10/08/2018). COMPARISON STUDIES: None this gestation FINDINGS: Gestational sac: No identifiable intrauterine gestational sac. There is a mildly irregular fluid fidencio ection in the lower endometrial canal extending into the cervix which measures over 2.5 cm in length, 5 mm AP, and just over 2 cm transversely. There is linear band of debris or material within this. No well-defined masslike retained products of conception evident. Yolk sac: Not applicable pole: Not applicable cardiac activity: Not applicable Estimated gestational age: Not applicable Subchorionic hemorrhage: none Uterus: Unremarkable apart from the endometrial cavity material Maternal ovaries: Right ovary 2.4 x 2.5 x 1.6 cm, left 2.5 x 2.3 x 1.9 cm, with an unremarkable appea sherie for age. Adnexa: negative Free pelvic fluid: none IMPRESSION: 1. There is no identifiable intrauterine or ectopic gestation. There is an irregular fluid collection in the lower endometrial canal extending into the cervix which contains a small amount of linear or fibrinous debris consistent with ongoing SAB. No substantial masslike retained products of conception . 2. No adnexal findings concerning for ectopic. Report Dictated By: Derick Perry MD at 03/22/2018 1:23 PM Report E-Signed By: Derick Perry MD at 03/22/2018 1:30 PM WSN:[id number]
[2018-03-22 13:50] VITALS: BP 138/77
[2018-03-22] MEDS ORDERED: KETOROLAC 15 MG/ML VIAL IVP ONE (14:50)
--- NOTE | 2018-03-22 15:13 | History & Physical ---
History of Present Illness Age of Patient: 27 : 2 Para or TPAL: 0 Estimated Gestational Age: 11.5 Chief Complaint Vaginal bleeding and passing out History of Present Illness Pt is a 27 y/o @ about 11 weeks gestation who presents to the ER with a chief complaint of vaginal bleeding. Pt called the production support analyst physician earlier and stated she had really heavy vaginal bleeding that has been happening for quite a few hours. Pt was brought to the ER via ambulance. She was found by emt with bp of approximately 60 systolic/palp. Pt knows that she was having a miscarriage and was given medication about 1 week ago to do conservative medical management. History Patient's Blood Type: A Positive Obstetrical History: hx of 29 week demise Past Medical History: Non contributory. Allergies: Coded Allergies: No Known Drug Allergies (Unverified , 10/27/17) Med Rec Home Meds Active Scripts Zolpidem Tartrate (AMBIEN) 5 Mg Tablet, 1 TAB PO QHS PRN for SLEEP, #30 TAB 0 Refills Prov:SEEMA BURTON MD 10/30/17 Reported Medications Vit W-Ca,Fe,FA(<1 mg) ( Formula) 1 Each Tablet, PO QDAY 10/27/17 Discontinued Reported Medications Labetalol Hcl (LABETALOL HCL) 200 Mg Tablet, 200 MG PO Q8H, #60 10/31/17 Discontinued Scripts Labetalol Hcl (LABETALOL HCL) 100 Mg Tablet, 200 MG PO Q8H, #60 TAB 1 Refill Prov:SEEMA BURTON MD 10/31/17 Review of Systems All Systems Reviewed/Normal: Yes, Except as Noted Constitutional: No Fever, No Weight Loss, No Weight Gain, No Chills, No Night Sweats, No Other Neurological: No Syncope, No Confusion, No Weakness, No Dizziness, No Slurred Speech, No Other Eyes: No Vision Change, No Loss of Vision, No Photophobia, No Other ENT: No Hearing Loss, No Sinus Congestion, No Sore Throat, No Ear Ache, No Tinnitus, No Other Cardiovascular: No Chest Pain, No Palpitations, No Orthostatic Hypotension, No Other Respiratory: No Shortness of Breath, No Cough, No Wheezing, No Other Gastrointestinal: No Nausea, No Vomiting, No Diarrhea, No Dysphagia, No Constipation, No Early Satiety, No Hematemesis, No Hematochezia, No Melena, No Abdominal Pain, No Other Genitourinary: No Dysuria, No Hematuria, No Urinary Incontinence, No Other Musculoskeletal: No Pain, No Sprain, No Strain, No Impaired Mobility, No Other Psychiatric: No Depression, No Anxiety, No Other Exam General Exam Vital Signs Vital Signs Date Time Temp Pulse Resp B/P (MAP) Pulse Ox O2 Delivery O2 Flow Rate FiO2 03/22/18 13:50 103 11 138/77 (97) 96 03/22/18 11:34 97.6 Room Air General Apperance: Alert/Awake/No Acute Distress Neuro: No Gross deficits Eyes: Normal Extraocular Movement & Vison ENT: Normal Cardiovascular: Regular Rate and Rhythm Respiratory: No Respiratory Distress Abdomen: Soft, Non-Tender, Non-Distended : Other (cervix dilated with POC at cervical os. easily removed on bimanual. cervix FT after procedure. ) Medical Decision Making Data Points Result Diagram: 03/22/18 1156 03/22/18 1233 Imaging Ultrasound/Imaging FACILITY: [facility] PATIENT NAME: Kassie Wood : 1990 MR: [id number] V: [id number] EXAM DATE: ORDERING PHYSICIAN: CAROLANN CABRERA TECHNOLOGIST: Location: [facility] Patient: Kassie Wood : 1990 Visit/Account:[id number] Date of Sevice: 03/22/2018 EXAMINATION: Transvaginal OB Ultrasound < 14 weeks 03/22/2018 11:42 AM HISTORY: ongoing miscarriage, heavy vaginal bleeding. LMP 01/01/2018: EGA 11 weeks 3 days (These are based on given MAGNO 10/08/2018). COMPARISON STUDIES: None this gestation FINDINGS: Gestational sac: No identifiable intrauterine gestational sac. There is a mildly irregular fluid collection in the lower endometrial canal extending into the cervix which measures over 2.5 cm in length, 5 mm AP, and just over 2 cm transversely. There is linear band of debris or material within this. No well- defined masslike retained products of conception evident. Yolk sac: Not applicable pole: Not applicable cardiac activity: Not applicable Estimated gestational age: Not applicable Subchorionic hemorrhage: none Uterus: Unremarkable apart from the endometrial cavity material Maternal ovaries: Right ovary 2.4 x 2.5 x 1.6 cm, left 2.5 x 2.3 x 1.9 cm, with an unremarkable appearance for age. Adnexa: negative Free pelvic fluid: none IMPRESSION: 1. There is no identifiable intrauterine or ectopic gestation. There is an irregular fluid collection in the lower endometrial canal extending into the cervix which contains a small amount of linear or fibrinous debris consistent with ongoing SAB. No substantial masslike retained products of conception. 2. No adnexal findings concerning for ectopic. 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 Re sponded well to IV hydration. H/H stable. Ultrasound negative for POC at this time. Will have the patient follow up with Dr. Burton or a provider at [facility]. Copies to: SEEMA BURTON MD ; PAULA HEWITT DO Mar 22, 2018 15:12
[2018-03-23] MEDS ORDERED: EMS NS 0.9%(*) 1000 ML BAG 1,000 ML IV ONE (09:00)
== END 2018-03-22 15:34 | disposition home or self-care (01) ==
LOC: ER 11:46
DX: O03.9 Complete or unspecified spontaneous abortion without complication (principal); N93.9 Abnormal uterine and vaginal bleeding, unspecified
CPT/HCPCS: 76817; 84702; 85025; 85610; 85730; 86850; 86900; 86901; 86920; 96361; 96374; 99285; J1885; J7030; 82040; 82247; 82310; 82374; 82435; 82565; 82947; 84075; 84132; 84155; 84295; 84450; 84460; 84520

== ENCOUNTER → 2018-03-22 | Outpatient (CLI) | payer BC ==
[2017-10-27 16:00] VITALS: BMI 40.7
== END ==
LOC: AMB 11:19
PROVIDERS: ATTEND Nurse Practitioner
DX: O46.90 Antepartum hemorrhage, unspecified, unspecified trimester (principal); R57.1 Hypovolemic shock; R53.1 Weakness
CPT/HCPCS: A0425; A0427

== ENCOUNTER → 2018-09-21 | Outpatient (CLI) | payer BC ==
[2017-10-27 16:00] VITALS: BMI 40.7
[~2018-09-21] MED LIST changes: +AZIT-17 PO; +CEFPR500PT PO; +METH4TAB66 PO
== END ==
LOC: LAB 15:36
PROVIDERS: ATTEND Physician Assistant
DX: J02.9 Acute pharyngitis, unspecified (principal)
CPT/HCPCS: 36415; 86665